=== PATIENT | male | born 1965 | race American Indian/Alaskan Native ===

== ENCOUNTER 2018-01-10 11:29 | Emergency (ER) | payer SELFPAY ==
[2018-01-10 11:45] VITALS: BP 153/90
[2018-01-10] MEDS ORDERED: TORADOL IM ONE (13:44)
--- NOTE | 2018-01-10 13:49 | Emergency Department Report ---
ED Back Pain/Injury HPI - General Chief Complaint: Back Pain/Injury Stated Complaint: WAGNER GARZA Time Seen by Provider: 01/10/18 13:16 Source: patient Limitations: No Limitations - History of Present Illness Initial Comments: Patient is 52 years old male history of coronary artery disease and hypertension. Patient presented to the ER complaining of lower back pain that radiated down to his leg. Patient stated that pain started all of a sudden when he bend it to grab a piece of paper. Patient denied any weakness, numbness or tingling sensation in his lower extremities. No bowel or bladder incontinence. Patient denied any fever recently. MD Complaint: back pain Similar Symptoms Previously: No Place: home Quality: sharp Improves With: immobilization Worsens With: movement Context: bending Associated Symptoms: denies other symptoms. denies: confusion, weakness, chest pain, numbness, difficulty walking, cough, difficulty urinating, diaphoresis, incontinence, fever/chills, constipation, headaches - Related Data Allergies Allergy/AdvReac Type Severity Reaction Status Date / Time No Known Allergies Allergy Verified 01/10/18 11:41 ED Review of Systems ROS: Stated complaint: WAGNER GARZA Other details as noted in HPI Comment: All other systems reviewed and negative Constitutional: denies: chills, fever Cardiovascular: denies: chest pain Gastrointestinal: denies: abdominal pain, nausea Musculoskeletal: back pain. denies: joint swelling, arthralgia, myalgia Neurological: denies: headache, weakness, numbness, paresthesias ED Past Medical Hx - Past Medical History Previous Medical History?: Yes Hx Hypertension: Yes - Surgical History Past Surgical History?: Yes Additional Surgical History: stent placement - Social History Smoking Status: Current Every Day Smoker Substance Use Type: None ED Physical Exam - General Limitations: No Limitations General appearance: alert, in no apparent distress - Head Head exam: Present: atraumatic, normocephalic, normal inspection - ENT ENT exam: Present: normal exam - Neck Neck exam: Present: normal inspection, full ROM. Absent: tenderness, lymphadenopathy, thyromegaly - Respiratory Respiratory exam: Present: normal lung sounds bilaterally. Absent: respiratory distress, wheezes, rales, rhonchi, accessory muscle use, decreased breath sounds , prolonged expiratory - Cardiovascular Cardiovascular Exam: Present: regular rate, normal rhythm, normal heart sounds - GI/Abdominal GI/Abdominal exam: Present: soft, normal bowel sounds. Absent: distended, tenderness, guarding, rebound, rigid, organomegaly, mass, bruit, pulsatile mass - Extremities Exam Extremities exam: Present: normal inspection, full ROM, normal capillary refill. Absent: tenderness, pedal edema, joint swelling, calf tenderness - Back Exam Back exam: Present: normal inspection, full ROM, muscle spasm. Absent: tenderness, CVA tenderness (R), CVA tenderness (L), paraspinal tenderness, vertebral tenderness, rash noted - Neurological Exam Neurological exam: Present: alert, oriented X3, CN II-XII intact, normal gait, reflexes normal - Skin Skin exam: Present: warm, intact, normal color ED Course Vital Signs 01/10/18 01/10/18 11:41 13:55 Temperature 97.8 F Pulse Rate 67 Respiratory 16 18 Rate Blood Pressure 153/90 O2 Sat by Pulse 96 Oximetry ED Medical Decision Making - Radiology Data Radiology results: report reviewed Referring Physician: SALIMA MAGANA Patient Name: WAGNER GARZA Date of : 1965 Sex: Male Report Date: 2018-01-10 Report Status: Finalized Findings [facility] [address] [place] [address] XRay Report Signed Patient: WAGNER GARZA MR#: [id number] : 1965 Acct:[id number] Age/Sex: 52 / M ADM Date: 01/10/18 Loc: ED Attending Dr: Ordering Physician: SALIMA MAGANA Date of Service: 01/10/18 Procedure(s): XR spine lumbosacral 2-3V Accession Number(s): [id number] cc: SALIMA MAGANA Fluoro Time In Minutes: LUMBOSACRAL SPINE, 3 VIEWS: History: Back injury Findings: The vertebral bodies, disk spaces and posterior elements are intact. No compression deformity or malalignment. The SI joints are symmetric and unremarkable. Impression: 1. No evidence for acute injury to the lumbar spine. Transcribed By: TTR Dictated By: WAGNER LEONE JR, MD Electronically Authenticated By: WAGNER LEONE JR, MD Signed Date/Time: 01/10/18 1404 DD/ TD/TT: 01/10/18 1404 Critical care attestation.: If time is entered above; I have spent that time in minutes in the direct care of this critically ill patient, excluding procedure time. ED Disposition Clinical Impression: Back pain, Sciatica Disposition: TO HOME OR SELFCARE Is pt being admited?: No Condition: Stable Instructions: Lumbar Radiculopathy (ED) Referrals: PRIMARY CARE, [Primary Care Provider] - 3-5 Days
--- NOTE | 2018-01-10 14:28 | XRay Report ---
LUMBOSACRAL SPINE, 3 VIEWS: History: Back injury Findings: The vertebral bodies, disk spaces and posterior elements are intact. No compression deformity or malalignment. The SI joints are symmetric and unremarkable. Impression: 1. No evidence for acute injury to the lumbar spine.
== END 2018-01-10 14:53 | disposition home or self-care (01) ==
LOC: ED 11:29
DX: M54.40 Lumbago with sciatica, unspecified side (principal); I10 Essential (primary) hypertension; F17.200 Nicotine dependence, unspecified, uncomplicated
CPT/HCPCS: 72100; 96372; 99283; J1885

== ENCOUNTER 2018-03-10 01:51 | Emergency (ER) | payer SELFPAY ==
[2018-03-10 05:05] LABS: Basophils # (Auto) 0.2 K/mm3 (0.0-0.1); Basophils % (Auto) 2.8 % (0.0-1.8); Eosinophils # (Auto) 0.2 K/mm3 (0.0-0.4); Eosinophils % (Auto) 2.5 % (0.0-4.3); Hematocrit 41.5 % (35.5-45.6); Hemoglobin 14.6 gm/dl (11.8-15.2); Lymphocytes # (Auto) 2.4 K/mm3 (1.2-5.4); Lymphocytes % (Auto) 31.8 % (13.4-35.0); Mean Corpuscular HGB Conc 35 % (32-34); Mean Corpuscular Hemoglobin 33 pg (28-32); Mean Corpuscular Volume 95 fl (84-94); Monocytes # (Auto) 0.7 K/mm3 (0.0-0.8); Monocytes % (Auto) 9.5 % (0.0-7.3); Platelet Count 438 K/mm3 (140-440); Red Blood Count 4.38 M/mm3 (3.65-5.03); Red Cell Distribution Width 14.7 % (13.2-15.2)
[2018-03-10 05:28] LABS: BUN/Creatinine Ratio 8; Blood Urea Nitrogen 10 mg/dL (9-20); Calcium 9.8 mg/dL (8.4-10.2); Hemolysis Index 36
[2018-03-10 09:23] LABS: Bacteria,Urine 1+ /HPF (Negative); Bilirubin,Urine NEG (Negative); Blood,Urine NEG (Negative); Color,Urine Amber (Yellow); Mucus,Urine 2+ /HPF
[2018-03-10 09:27] LABS: Amphetamine Screen,Urine PRESUMPTIVE NEGATIVE; Benzodiazepines Screen,Urine PRESUMPTIVE NEGATIVE; Methadone Screen,Urine PRESUMPTIVE NEGATIVE; Opiate Screen,Urine PRESUMPTIVE NEGATIVE
[2018-03-10 09:47] LABS: Cannabinoid Screen,Urine PRESUMPTIVE POSITIVE; Cocaine Screen,Urine PRESUMPTIVE POSITIVE
--- NOTE | 2018-03-10 11:22 | Emergency Department Report ---
ED Psych HPI - General Chief Complaint: Psych Stated Complaint: MH Time Seen by Provider: 03/10/18 11:20 Source: patient Mode of arrival: Ambulatory Limitations: No Limitations - History of Present Illness Initial Comments: Patient is a 52-year-old male presents emergency room with complaints of suicidal ideation with plan. Patient states his plan is to cut himself in order to . Patient states his suicidal ideations have been going on for a week and worsening. Patient states he started using drugs on 03/09/2018. Patient states she's been feeling depressed for a week. Patient states depression is worsening. Patient reports that he is having audio hallucinations times one week that are telling him to kill himself. Patient denies homicidal ideations and visual hallucinations. Patient denies physical complaints except for being hungry. Patient denies chest pain shortness of breath. Patient denies abdominal pain. Patient denies fever or chills. MD Complaint: suicidal ideation, feels depressed -: Sudden Associated Psychiatric Symptoms: depression, suicidal ideation, auditory hallucinations History of same: Yes Quality: constant Improves With: none Worsens With: none Context: recent drug abuse, significant life stressor Associated Symptoms: denies: confusion, headache, shortness of breath, nausea, vomiting, syncope, insomnia Treatments Prior to Arrival: placed on mental he If Self Harm: admits thoughts of, has plan - Related Data Previous Rx's Medication Instructions Recorded Last Taken Type Ketorolac [Toradol] 10 mg PO Q6H PRN #20 tablet 01/10/18 Unknown Rx Ondansetron [Zofran Odt] 4 mg PO Q8HR PRN #14 tab.rapdis 01/10/18 Unknown Rx traMADol [Ultram 50 MG tab] 50 mg PO Q4HR PRN #14 tablet 01/10/18 Unknown Rx Allergies Allergy/AdvReac Type Severity Reaction Status Date / Time No Known Allergies Allergy Verified 01/10/18 11:41 ED Review of Systems ROS: Stated complaint: MH Other details as noted in HPI Constitutional: denies: chills, fever Eyes: denies: eye pain, eye discharge, vision change ENT: denies: ear pain, throat pain Respiratory: denies: cough, shortness of breath, wheezing Cardiovascular: denies: chest pain, palpitations Endocrine: no symptoms reported Gastrointestinal: denies: abdominal pain, nausea, diarrhea Genitourinary: denies: urgency, dysuria Musculoskeletal: denies: back pain, joint swelling, arthralgia Skin: denies: rash, lesions Neurological: denies: headache, weakness, paresthesias Psychiatric: depression, auditory hallucinations, suicidal thoughts. denies: anxiety, visual hallucinations, homicidal thoughts Hematological/Lymphatic: denies: easy bleeding, easy bruising ED Past Medical Hx - Past Medical History Previous Medical History?: Yes Hx Hypertension: Yes Hx Heart Attack/AMI: Yes (2007,2008) Hx Psychiatric Treatment: Yes (SI in late ) - Surgical History Past Surgical History?: Yes Additional Surgical History: stent placement - Family History Family history: no significant - Social History Smoking Status: Current Every Day Smoker Substance Use Type: Alcohol, Marijuana, Other - Medications Home Medications: Home Medications Medication Instructions Recorded Confirmed Last Taken Type Ketorolac [Toradol] 10 mg PO Q6H PRN #20 tablet 01/10/18 Unknown Rx Ondansetron [Zofran Odt] 4 mg PO Q8HR PRN #14 tab.rapdis 01/10/18 Unknown Rx traMADol [Ultram 50 MG tab] 50 mg PO Q4HR PRN #14 tablet 01/10/18 Unknown Rx ED Physical Exam - General Limitations: No Limitations General appearance: alert, in no apparent distress - Head Head exam: Present: atraumatic, normocephalic - Eye Eye exam: Present: normal appearance - ENT ENT exam: Present: mucous membranes moist - Neck Neck exam: Present: normal inspection - Respiratory Respiratory exam: Present: normal lung sounds bilaterally. Absent: respiratory distress - Cardiovascular Cardiovascular Exam: Present: regular rate, normal rhythm. Absent: systolic murmur, diastolic murmur, rubs, gallop - GI/Abdominal GI/Abdominal exam: Present: soft, normal bowel sounds - Rectal Rectal exam: Present: deferred - Extremities Exam Extremities exam: Present: normal inspection - Back Exam Back exam: Present: normal inspection - Neurological Exam Neurological exam: Present: alert, oriented X3 - Psychiatric Psychiatric exam: Present: depressed, suicidal ideation - Skin Skin exam: Present: warm, dry, intact, normal color. Absent: rash ED Course Vital Signs 03/10/18 02:49 Temperature 98.1 F Pulse Rate 90 Respiratory 16 Rate Blood Pressure 124/92 O2 Sat by Pulse 98 Oximetry - Reevaluation(s) Reevaluation #1: Patient was placed on a 1013 due to suicidal ideation with a plan. Patient will remain on a psychiatric hold and medically cleared once all results are available. Mental health evaluation was ordered. 03/10/18 11:30 Patient is medically cleared and patient will remain on 1013 until accepted to a psychiatric facility. Plan of care and labs discussed with patient 03/10/18 15:10 ED Medical Decision Making - Lab Data Result diagrams: 03/10/18 04:37 03/10/18 04:37 - Medical Decision Making Patient is a 52-year-old male that presents emergency room with complaints of suicidal ideation with a plan. She was placed on a 1013 immediately and will remain on 1013 until accepted into appropriate psychiatric facility. Patient is medically cleared. - Differential Diagnosis DEPRESSION. SI. Critical care attestation.: If time is entered above; I have spent that time in minutes in the direct care of this critically ill patient, excluding procedure time. ED Disposition Clinical Impression: Suicidal ideations, Hallucination Depression Qualifiers: Depression Type: unspecified Qualified Code(s): F32.9 - Major depressive disorder, single episode, unspecified Disposition: [id number]/TX-65 PSY HOSP/PSY UNIT Is pt being admited?: No Does the pt Need Aspirin: No Condition: Stable Referrals: PRIMARY CARE, [Primary Care Provider] - 3-5 Days Time of Disposition: 15:12
--- NOTE | 2018-03-12 11:41 | Consultation ---
History of Present Illness - Reason for Consult Consult date: 03/12/18 Reason for consult: Mental Health Evaluation Requesting physician: GISELA LU III - Chief Complaint Chief complaint: "I am depressed" - History of Present Psychiatric Illness 52-year-old male presents emergency room with complaints of suicidal ideation with plan. Today the patient is calm and cooperative, but withdrawn during the assessment. He stated that his issues is "drug use." He stated having a long hx of substance abuse since his 20's. He stated that he think about the things he have lost due to his substance use. He stated that he do hear voices when he is high on drugs. He stated that his depression has "heightened" lately because his life is in t"turmoil." He didn't want to discuss his life stressors when asked. He endorsed SI's with a plan to stab himself in the neck. He stated that he has attempted suicide in the past by overdosing. He denies HI's and AVH's. He stated that his sleep is erratic, but denies a poor appetite. He denies alcohol consumption (etoh). Medications and Allergies Allergies Allergy/AdvReac Type Severity Reaction Status Date / Time No Known Allergies Allergy Verified 01/10/18 11:41 Home Medications Medication Instructions Recorded Confirmed Last Taken Type Ketorolac [Toradol] 10 mg PO Q6H PRN #20 tablet 01/10/18 Unknown Rx Ondansetron [Zofran Odt] 4 mg PO Q8HR PRN #14 tab.rapdis 01/10/18 Unknown Rx traMADol [Ultram 50 MG tab] 50 mg PO Q4HR PRN #14 tablet 01/10/18 Unknown Rx Past psychiatric history - Past Medical History Past Medical History: acute AL, hypertension - past Psychiatric treatment and history psychiatric treatment history: Inpatient psy services in the past. Denies a fam psy hx. - Social History Social history: lives with family Mental Status Exam - Vital signs Last Vital Signs Temp 98.4 F 03/12/18 08:30 Pulse 65 03/12/18 08:30 Resp 16 03/12/18 08:30 BP 132/97 03/12/18 08:30 Pulse Ox 98 03/12/18 08:30 - Exam Narrative exam: MSE: Appearance: calm, cooperative Behavior: regular eye contact Speech: regular rate and tone Mood: withdrawn, guarded "I am depressed" Affect: congruent to mood Thought Process: circumstantial Thought Content: denies HI's and AVH's Motor Activity: ambulatory Cognition: A/O x 3 Insight: variable Judgment: poor Results Result Diagrams: 03/10/18 04:37 03/10/18 04:37 All other labs normal. Assessment and Plan Assessment and plan: Impression: MDD, Severe Type. Substance Use DO (cocaine). Cannabis Use DO. Today the patient is calm and cooperative, but withdrawn during the assessment. The patient endorses SI's with a plan. DDx: R/O Bipolar DO, R/O Substance Induced Mood DO Recommendation/Plan: Continue 1013 with placement to inpatient psy services. Start Remeron 15 mg PO HS for depression. Discussed possible suicidality/ medication induced carolyne with patient reference Remeron.
[2018-03-12] MEDS: REMERON PO SCH (22:04)
--- NOTE | 2018-03-13 13:05 | Progress Note ---
Subjective - Reason for Consult Consult date: 03/13/18 Reason for consult: Psychiatric Follow-up Evaluation - Chief Complaint Chief complaint: "I feel okay" Patient is a 52-year-old male presents emergency room with complaints of suicidal ideation with plan. Today the patient is calm and cooperative, but withdrawn during the assessment. He reports that he feels better and the suicidal ideations have decreased. Depressed mood is triggered by long hx of " drug use." Currently, he denies SI/HI's, A/VH's, and delusions. Mental Status Exam - Vital signs Last Vital Signs Temp 98.8 F 03/13/18 09:55 Pulse 58 L 03/13/18 09:55 Resp 16 03/13/18 09:55 BP 145/97 03/13/18 09:55 Pulse Ox 100 03/13/18 09:55 - Exam Narrative exam: Mental Status Exam General Appearance: Causally Dressed-hospital gown Eye Contact: Intermittent Orientation: Alert and oriented x 4 ( person, place, time, and situation) Attitude/Behavior: Cooperative Sensorium: Clear Psychomotor & Musculoskeletal Activity: Laying in bed Mood: "I'm okay" Depressed Affect: Constricted Speech/Language: Normal rate and tone Thought Processes: Organized Thought Content: Reality Oriented; WNL- None elicited; patient denies delusions Perception: WNL-patient denies A/V/T hallucinations Concentration/Attention: Impaired Suicidal Ideations/Plan: Patient denies Homicidal Ideations/Plan: Patient denies Insight: Variable Judgment: Poor Assessment and Plan Impression: MDD, Severe Type. Substance Use DO (cocaine). Cannabis Use DO. Today the patient is calm and cooperative, but withdrawn during the assessment. The patient denies SI/HI's, A/VH's, and delusions. DDx: R/O Bipolar DO, R/O Substance Induced Mood DO Recommendation/Plan: 1. Continue 1013 with placement to inpatient psychiatric services. 2. Continue Remeron 15 mg PO HS for depression. Discussed possible suicidality/ medication induced carolyne with patient reference Remeron. 3. Will continue to monitor mood, psychosis, sleep, appetite, compliance, and side effects.
[2018-03-13] MEDS: REMERON PO SCH (22:01)
[2018-03-14 03:22] VITALS: BP 131/81
== END 2018-03-14 03:26 ==
LOC: EEVIPCON 01:51 → ED 01:51
DX: F32.9 Major depressive disorder, single episode, unspecified (principal); F14.10 Cocaine abuse, uncomplicated
CPT/HCPCS: 36415; 80048; 80307; 81001; 85025; 99285; G0480; 80320